=== PATIENT | male | born 1995 | race Caucasian/White ===

== ENCOUNTER 2021-06-26 13:31 | Emergency (ER) | payer BC, SELFPAY ==
[2021-06-26 13:32] VITALS: BP 127/99; PULSE 105; RESP 16; TEMP 36.7; BMI 20.7
--- NOTE | 2021-06-26 14:02 | EDS_ITS ---
HPI History of Present Illness Chief Complaint: Dental Informant: patient Onset/Context/Timing Onset: Yesterday Current Severity: Moderate Maximum Severity: Moderate Narrative Narrative: Patient presents with right upper dental pain that started last evening. Patient states the tooth broke off about 3 months ago. And not bothered him until last evening. He is continent entire tube of Orajel trying to control the pain. He does have a dentist he can follow-up with. PFSH PFSH no medical history Home Medications oxycodone-acetaminophen 1 tab PO Q6H PRN PRN #8 tablet 05/04/15 [Rx Last Taken Unknown] naproxen [Naprosyn] 500 mg PO BID PRN #20 tab 06/26/21 [Rx Last Taken Unknown] penicillin V potassium 500 mg PO 4X/DAY #40 tab 06/26/21 [Rx Last Taken Unknown] Allergy/AdvReac Type Severity Reaction Status Date / Time No Known Allergies Allergy Verified 06/26/21 13:33 Social History Smoking Status: Never smoker ROS ROS ED Constitutional Constitutional ED: Denies chills or fever(s) Eyes Eyes: Denies change in vision ENT ENT ED: Reports other Details: Right upper dental pain ; Denies ear pain or sore throat Cardiovascular Cardiovascular: Denies chest pain Respiratory/Chest Respiratory/Chest: Denies cough or dyspnea Gastrointestinal Gastrointestinal: Denies abdominal pain, diarrhea, nausea or vomiting Genitourinary Genitourinary ED: Denies dysuria Musculoskeletal Musculoskeletal: Denies back pain Integumentary Denies rash Neurologic Neurologic: Denies headache(s) or weakness Psychiatric Psychiatric: Denies anxiety or depression Allergic/Immunologic Allergic/Immunologic ED: Denies urticaria EXAM Physical Exam Const Vital Signs: 06/26/21 13:32 Temperature 98.0 F Temperature Source Temporal Pulse Rate 105 H Respiratory Rate 16 Blood Pressure 127/99 H Blood Pressure Mean 108 Positive well nourished and well developed General Appearance ED: well developed HEENT HEENT Narrative: No facial edema or erythema. Intraoral examination reveals a fracture to the right maxillary third molar. Mild surrounding gum edema. Posterior pharynx is unremarkable. Patient speaks with a strong voice and tolerate secretions well. Eyes PERRL and EOMs intact bilaterally Neck supple Lymph Lymphatic: no lymphadenopathy noted Chest Wall inspection of chest normal and palpation of chest normal Resp normal respiratory effort and clear to auscultation bilaterally Cardio regular rate and regular rhythm Extremity normal to inspection Neuro oriented x3 Sensorium / Orientation: alert Psych mental status grossly normal Skin no rashes or lesions noted MDM [facility] Treatment and Re-Evaluation Comments:: Patient was treated with Pen-Vee K and naproxen at home. He will be given a single dose of Flushing here to get pain under control. He is to follow-up with his dentist as soon as possible. Discharge Plan Triage Chief Complaint: Dental ED Provider: Karolina Taylor Dx/Rx/DC Orders Clinical Impression: Odontalgia Instructions: ED Dental Pain Prescriptions: New penicillin V potassium 250 MG tablet 500 mg PO 4X/DAY Qty: 40 RF: 0 naproxen [Naprosyn] 500 mg tablet 500 mg PO BID PRN (Reason: pain) Qty: 20 RF: 0 No Action oxycodone-acetaminophen 1 TABLET tablet 1 tab PO Q6H PRN PRN (Reason: Pain) Qty: 8 RF: 0 Primary Care Provider: Edi Heaton Referrals: Edi Heaton MD [Primary Care Provider] - Activity Restrictions/Additional Instructions: Follow-up with your dentist as soon as possible Disposition Disposition: Home, Self Care
[2021-06-26] MEDS: Naproxen 500 MG Tablet PO (14:12)
[2021-06-26] MEDS: HYDROcodone Bitartrate/Apap 5/325 Tablet PO (14:12)
[2021-06-26] MEDS: Penicillin Vk 250 MG Tablet 500 MG PO (14:13)
== END 2021-06-26 14:27 | disposition home or self-care (01) ==
LOC: ED 14:24
PROVIDERS: Emergency Provider Emergency Medicine
DX: K08.89 Other specified disorders of teeth and supporting structures (principal)
CPT/HCPCS: 99283

== ENCOUNTER 2022-01-22 21:51 | Emergency (ER) | payer BC, SELFPAY ==
[2022-01-22 21:51] VITALS: BP 105/81; PULSE 70; RESP 16; TEMP 36.2; O2SAT 96; BMI 19.1
--- NOTE | 2022-01-22 22:20 | ED.VIS.GI ---
HPI HPI - GI History of Present Illness Chief Complaint: Nausea/Vomiting Narrative Narrative: 26-year-old male presenting with nausea and vomiting. He states that he ate [employer] yesterday which she would typically eat but about an hour after eating this he started to vomit. He states he is not able to hold down any food or fluids since that time. He does have abdominal cramping but states he believes it is due to vomiting. He has not had fever, chills. He states he has been urinating and urinated about 2 hours ago. PFSH PFSH Home Medications oxycodone-acetaminophen 1 tab PO Q6H PRN PRN #8 tablet 05/04/15 [Rx Last Taken Unknown] naproxen [Naprosyn] 500 mg PO BID PRN #20 tab 06/26/21 [Rx Last Taken Unknown] penicillin V potassium 500 mg PO 4X/DAY #40 tab 06/26/21 [Rx Last Taken Unknown] Allergy/AdvReac Type Severity Reaction Status Date / Time No Known Allergies Allergy Verified 06/26/21 13:33 Surgical History Hx of tonsillectomy Social History Smoking Status: Never smoker ROS ROS ED Constitutional Constitutional ED: Denies chills or fever(s) ENT ENT ED: Denies rhinorrhea or sore throat Cardiovascular Cardiovascular: Denies chest pain or palpitations Respiratory/Chest Respiratory/Chest: Denies cough, dyspnea or sputum Gastrointestinal Gastrointestinal: Reports abdominal pain, diarrhea, nausea and vomiting Genitourinary Genitourinary ED: Denies dysuria or hematuria Musculoskeletal Musculoskeletal: Denies arthralgias or myalgias Integumentary Denies rash Neurologic Neurologic: Denies headache(s) or weakness EXAM Physical Exam Const Vital Signs: 01/22/22 21:51 Temperature 97.1 F L Temperature Source Temporal Pulse Rate 70 Respiratory Rate 16 Blood Pressure 105/81 H Blood Pressure Mean 89 Pulse Ox 96 Oxygen Delivery Method Room Air Positive well nourished General Appearance ED: NAD; Negative for pallor HEENT Reports moist mucous membranes normocephalic and atraumatic Eyes PERRL and EOMs intact bilaterally Cardio regular rate and regular rhythm GI non-tender and non-distended Palpation: soft Back/Spine no CVA tenderness Neuro CN's II-XII intact bilaterally Sensorium / Orientation: alert, oriented to person, oriented to place, oriented to time and orientation impaired Psych mental status grossly normal Skin General Skin Exam: Negative for jaundice or pallor Lesions: no lesions Rashes: no rashes MDM MDM MDM Narrative Medical decision making narrative: After having a conversation with the patient I talked to him about trying oral Zofran and see if that would help with nausea in order to get him sipping fluids. He seemed amenable to this. After ordering the Zofran he complained to the nurse that he already tried Zofran at home and it was ineffective. I came back to the room to speak with him again and I offered to give him IM Phenergan or start an IV and give him IV Zofran and he stated that he wanted to try oral Phenergan but he did not want a shot and he did not want an IV necessarily. I told him specifically that if he wants me to give him IV fluids I am happy give him IV fluids. At this point he stated that he did not want an IV because he does not like IVs. His girlfriend at that point stated he is a baby. The patient nodded in confirmation and said he wanted to trial oral Phenergan and see if he improved. I stated if that did not help him that that we could start an IV and give him IV nausea medicine and IV fluids. He was amenable to this. The Phenergan was ordered orally. After about 20 minutes the patient apparently became upset because he vomited. He left the emergency room before I could reevaluate him. Impression: 1. Nausea/vomiting Discharge Plan Triage Chief Complaint: Nausea/Vomiting ED Provider: Aidan Lam Dx/Rx/DC Orders Prescriptions: No Action oxycodone-acetaminophen 1 TABLET tablet 1 tab PO Q6H PRN PRN (Reason: Pain) Qty: 8 RF: 0 penicillin V potassium 250 MG tablet 500 mg PO 4X/DAY Qty: 40 RF: 0 naproxen [Naprosyn] 500 mg tablet 500 mg PO BID PRN (Reason: pain) Qty: 20 RF: 0 Primary Care Provider: Care Physician,Delilah Primary
[2022-01-22] MEDS: proMETHazine 25 MG Tablet PO (22:50)
--- NOTE | 2022-01-22 23:05 | ED.RN ---
PT OBSERVED LEAVING DEPARTMENT, PT YELLING AND CURSING. PT STATES I'M NEVER COMING BACK THIS [facility]UCKING [facility] AGAIN, THEY WON'T DO ANYTHING I WANT. MALL MANAGER AWARE.
== END 2022-01-22 23:14 | disposition left against medical advice (07) ==
LOC: ED 22:37
PROVIDERS: Emergency Provider Student in an Organized Health Care Education/Training Program; Visit Provider Student in an Organized Health Care Education/Training Program
DX: R11.2 Nausea with vomiting, unspecified (principal); R10.9 Unspecified abdominal pain
CPT/HCPCS: 99283

== ENCOUNTER 2024-06-04 22:50 | Emergency (ER) | payer MEDICAID, SELFPAY ==
[2024-06-04 22:51] VITALS: BP 143/84; PULSE 91; RESP 20; TEMP 37.2; O2SAT 100; BMI 19.1
[2024-06-04 22:53] VITALS: BP 143/84; PULSE 91; RESP 20; TEMP 37.2; O2SAT 100
--- NOTE | 2024-06-04 23:20 | ED.VIS.LOWEX ---
HPI History of Present Illness HPI Narrative: Suspected insect bite left mid calf medially. Chief Complaint: Wound Informant: patient and spouse/S.O. Narrative Narrative: Healthy 28-year-old male on no medications and denies any medical problems. States he has been feeling poorly last several days. He denies any nausea, vomiting or diarrhea. He said 2 days ago he noticed an area on his left medial mid calf that he thought might be an insect bite with a local reaction. He denies any fever or chills. No streaks. No pus. He has never had anything like this before. Prior similar symptoms: No Recent Illness/Hospitalization: No PFSH PFSH no medical history Home Medications ?Medication ?Instructions ?Recorded ?Last Taken ?Type oxycodone-acetaminophen 5 mg-325 1 tab PO Q6H PRN PRN Pain ##8 05/04/15 Unknown Rx mg tablet naproxen 500 mg tablet (Naprosyn) 500 mg PO BID PRN pain #20 tabs 06/26/21 Unknown Rx penicillin V potassium 250 mg 500 mg (2 x 250 mg) PO 4X/DAY #40 06/26/21 Unknown Rx tablet tabs cephalexin 500 mg capsule 500 mg PO TID 7 days #21 caps 06/04/24 Unknown Rx Allergy/AdvReac Type Severity Reaction Status Date / Time No Known Allergies Allergy Verified 06/04/24 22:53 Surgical History Hx of tonsillectomy Social History Smoking Status: Former smoker ROS ROS ED ROS Narrative Malaise. No fever. No chills. No vomiting or diarrhea. Review of Systems ROS Unobtainable: Denies due to encephalopathy Constitutional Constitutional ED: Denies chills or fever(s) Eyes Eyes: Denies blurry vision ENT ENT ED: Denies ear pain Cardiovascular Cardiovascular: Denies chest pain Respiratory/Chest Respiratory/Chest: Denies cough or dyspnea Gastrointestinal Gastrointestinal: Denies abdominal pain Genitourinary Genitourinary ED: Denies dysuria or hematuria Musculoskeletal Musculoskeletal: Denies arthralgias Integumentary Reports rash; Denies abscess or Abrasions Neurologic Neurologic: Denies headache(s) Psychiatric Psychiatric: Denies anxiety Endocrine Endocrinology: Denies polydipsia Hematologic/Lymphatic Hematologic/Lymphatic: Denies easy bleeding Allergic/Immunologic Allergic/Immunologic ED: Denies mouth swelling EXAM Physical Exam Narrative Exam Narrative: Well-appearing 28-year-old male vital signs stable afebrile. H EENT exam unremarkable. Moist mucous membranes. Neck nontender no lymphadenopathy. Lungs clear to auscultation bilaterally. Heart regular rhythm rate about 90 no murmur. Chest wall ribs nontender. Abdomen soft nontender. Moving all 4 extremities. Neurovascular intact. The medial portion of his left calf there is about a quarter sized area that looks like a local allergic reaction. Mildly red. It is not warm. It is not tender. There is no pustules or vesicles. There is no lymphangitic streaking. There is no inguinal lymphadenopathy. Does not particularly hurt to palpate. Nontender. The skin is not necrotic. There is no subcu air. Distally the foot is neurovascularly intact. With normal range of motion. Normal sensation and DP pulse. There is no other rashes anywhere on his skin. Const Vital Signs: 06/04/24 22:51 06/04/24 22:53 Temperature 99 F 99 F Temperature Source Temporal Temporal Pulse Rate 91 91 Respiratory Rate 20 H 20 H Blood Pressure 143/84 H 143/84 H Blood Pressure Mean 103 103 Pulse Ox 100 100 Oxygen Delivery Method Room Air Room Air Positive well nourished and well developed; Negative for obese, cachectic, contractures or unkempt General Appearance ED: well developed and NAD; Negative for unkempt, cachectic or contractures Nutritional Appearance: Negative for cachectic or obese HEENT Reports moist mucous membranes normocephalic and atraumatic; Negative for trauma or tenderness Eyes PERRL General Eye ED: Negative for other Neck full ROM and supple Thyroid: Negative for tender Lymph Lymphatic: Negative for other Chest Wall inspection of chest normal and palpation of chest normal Chest: Negative for other Resp normal respiratory effort, no retractions and clear to auscultation bilaterally Auscultation: Negative for rales, rhonchi or wheezes Cardio regular rate, regular rhythm, S1 normal heart sound, S2 normal heart sound and no murmurs Rate: Negative for bradycardia or tachycardic Rhythm: Negative for abnormal rhythm Bruits: Negative for other GI non-tender, non-distended and no masses Inspection: Negative for abdominal distention Palpation: soft; Negative for tender or guarding Back/Spine no CVA tenderness Neuro oriented x3, CN's II-XII intact bilaterally and moves all extremities Sensorium / Orientation: alert, oriented to person, oriented to place and oriented to time; Negative for orientation impaired or confused Motor Exam: strength 5/5 throughout Psych mental status grossly normal Appearance: Negative for unkempt Speech: No other Mood & Affect: Negative for anxious Skin no wounds Skin Narrative: Patient has a well-demarcated circular rash about the size of a quarter on his left mid calf. It is not warm to the touch. Is not tender. There is no pustules or vesicles. There is no discharge. Or bleeding. There is no streaks. It is not fluctuant. There is no inguinal lymphadenopathy in that leg. Appears to be a local allergic reaction. It does not appear to be infected. Lesions: no lesions Rashes: No no rashes MDM MDM MDM Narrative Medical decision making narrative: 28-year-old male healthy appears to have a local allergic reaction to an insect sting on his left leg. Currently does not look like brown recluse. It is not necrotic. It does not appear to be infected. They will continue to use cortisone and Benadryl cream. I did write him for an antibiotic in case it starts looking infected but at this time I told him I do not believe this is infected. Is not warm to the touch. Is not tender. There is no streaks or lymphadenopathy. Both he and his significant other comfortable with the plan. He will be discharged home. Follow-up with dermatology if looking worse or not improving. Discharge Plan Triage Chief Complaint: Wound ED Provider: Wilfred Rnialdi Dx/Rx/DC Orders Clinical Impression: Insect bite Instructions: ED Insect Bite Prescriptions: New cephalexin 500 mg capsule 500 mg PO TID 7 Days Qty: 21 0RF No Action oxycodone-acetaminophen 1 TABLET tablet 1 tab PO Q6H PRN PRN (Reason: Pain) Qty: 8 0RF penicillin V potassium 250 MG tablet 500 mg PO 4X/DAY Qty: 40 0RF naproxen [Naprosyn] 500 mg tablet 500 mg PO BID PRN (Reason: pain) Qty: 20 0RF Primary Care Provider: Care Physician,No Primary Referrals: Sofía Reyes MD [Non-Staff] - Care Physician,No Primary [Primary Care Provider] - Activity Restrictions/Additional Instructions: Most likely this is a local allergic reaction to an insect bite. Currently does not look infected. If it starts getting red, hot streaks or pus definitely start the antibiotic but I would hold off on that right now. Apply cortisone cream or Benadryl cream to the area. Clean it daily with soap and water. This will probably take a while to heal. Some of the skin may slough off. If it looks a lot worse follow-up with the power hair clipper. It could potentially be a brown recluse spider bite but does not really look like that at this time. If the skin starts looking necrotic in the area gets black follow-up with dermatology. Nothing to do for that differently at this time. Print Language: Kinyarwanda Disposition Disposition: Home, Self Care
[2024-06-04 23:35] VITALS: BP 143/84; PULSE 94; RESP 15; TEMP 36.7; O2SAT 100
== END 2024-06-04 23:36 | disposition home or self-care (01) ==
PROVIDERS: Emergency Provider Emergency Medicine; Visit Provider Emergency Medicine
DX: S80.862A Insect bite (nonvenomous), left lower leg, initial encounter (principal); W57.XXXA Bitten or stung by nonvenomous insect and other nonvenomous arthropods, initial encounter; Z87.891 Personal history of nicotine dependence
CPT/HCPCS: 99282